=== PATIENT | female | born 1945 | race Caucasian/White ===

== ENCOUNTER 2019-11-11 01:36 | Outpatient (CLI) | payer MEDICARE ==
[~2019-11-11 01:36] MED LIST: AMLO5TAB PO; BUPR-344 PO; CALC-522 PO; CHOL100046 PO; HYDR-3972 PO; IRON PO; LEVO125T PO; OMEG1CAP2 PO; OXYB5TAB16 PO; POTA10CA44 PO; RANI-648 PO; VILA40TA PO
== END 2019-11-11 23:59 | disposition home or self-care (01) ==
LOC: DIABETIC 01:36
PROVIDERS: ATTEND Nurse Practitioner Adult Health
DX: E11.22 Type 2 diabetes mellitus with diabetic chronic kidney disease (principal); N18.9 Chronic kidney disease, unspecified
CPT/HCPCS: G0108